=== PATIENT | female | born 1955 | race Caucasian/White ===

== ENCOUNTER 2019-01-12 23:47 | Emergency (ER) | payer MEDICARE, MEDICAID ==
[~2019-01-12] VITALS: Ht 157.5 cm; Wt 72.7 kg
[~2019-01-12 23:47] MED LIST: ALLO300T10 PO; ALPR0.5T9 PO; ASPI325T56 PO; ATOR10TA70 PO; BIOT1CAP3 PO; CETI-108 PO; CYCL10TA27 PO; DICY10CA88 PO; DOCU-273 PO; FENO134C PO; METF500T PO; METO25TA6 PO; MORP60TA66 PO; MULT-1085 PO; NITR0.4T SL; OMEP-50 PO; OXYC30TA88 PO; PROM25TA14 PO
[2019-01-12 23:59] VITALS: BP_DIAS 86
--- NOTE | 2019-01-12 23:59 | NUR ---
Pt is passive aggressive
[2019-01-13] MEDS ORDERED: PANT20TA2 PO (00:24)
[2019-01-13] MEDS ORDERED: SIMV20TA PO (00:25)
[2019-01-13] MEDS ORDERED: DULA0.75 SQ (00:26)
--- NOTE | 2019-01-13 00:32 | NUR ---
registration here to take he and passport and put into safe.
--- NOTE | 2019-01-13 00:37 | NUR ---
PTS STUFF LOCKED UP IN AMBULANCE AND DOCUMENTED
[2019-01-13 00:47] LABS: BASOPHILS # (AUTO) 0.1 X10'3 (0-0.2); BASOPHILS % (AUTO) 0.9 % (0-1); EOSINOPHILS # (AUTO) 0.4 X10'3 (0-0.9); EOSINOPHILS % (AUTO) 3.8 % (0-6); HEMATOCRIT 38.4 % (35.0-45.0); HEMOGLOBIN 12.5 g/dl (12.0-16.0); LYMPHOCYTES # (AUTO) 2.7 X10'3 (1.1-4.8); LYMPHOCYTES % (AUTO) 24.1 % (21-51); MEAN CORPUSCULAR HEMOGLOBIN 29.6 PG (27.0-31.0); MEAN CORPUSCULAR HGB CONC 32.4 g/dL (33.0-36.5); MEAN CORPUSCULAR VOLUME 91.1 FL (78-98); MONOCYTES # (AUTO) 0.6 X10'3 (0-0.9); NEUTROPHILS # (AUTO) 7.3 X10'3 (1.8-7.7); NEUTROPHILS % (AUTO) 66.2 % (42-75); PLATELET COUNT 292 X10'3 (140-440); RED BLOOD COUNT 4.22 X10'6 (4.20-5.60); RED CELL DISTRIBUTION WIDTH 14.9 % (11.5-14.5)
[2019-01-13 00:57] LABS: CLARITY,URINE CLEAR (Clear); COLOR,URINE YELLOW (Yellow); GLUCOSE, URINE >=1000 mg/dl (Neg); KETONES,URINE TRACE mg/dl (Neg); LEUKOCYTE ESTERASE ,URINE NEGATIVE (Neg); NITRITES, URINE NEGATIVE (Neg); OCCULT BLOOD,URINE SMALL (Neg); PH,URINE 5.5 (4.8-8.0); PROTEIN,URINE 100 mg/dl (Neg); UROBILINOGEN,URINE 0.2 E.U/dL (0.2-1.0)
[2019-01-13 00:58] LABS: URINE HCG NEGATIVE (NEG)
[2019-01-13 01:05] LABS: ALANINE AMINOTRANSFERASE 30 U/L (12-78); ALKALINE PHOSPHATASE 89 IU/L (46-116); ANION GAP 15 (8-16); ASPARTATE AMINO TRANSFERASE 17 U/L (10-37); BILIRUBIN,TOTAL 0.2 MG/DL (0.1-1.0); BLOOD UREA NITROGEN 35 MG/DL (7-18); BUN/CREATININE RATIO 22.3 (6.6-38.0); CALCIUM 9.2 MG/DL (8.5-10.1); CHLORIDE 100 MMOL/L (99-107); CREATININE 1.57 MG/DL (0.40-0.90); GLUCOSE 372 MG/DL (70-104); POTASSIUM 3.9 MMOL/L (3.5-5.1); SODIUM 136 MMOL/L (135-145); TOTAL CARBON DIOXIDE 21.4 MMOL/L (24-32); TOTAL PROTEIN 7.9 G/DL (6.4-8.2); eGFR 33 ML/MIN
--- NOTE | 2019-01-13 01:08 | NUR ---
She is difficult. She wants her blood sugar rechecked, she wants the doctor. Told her the doctor will be over here when he gets over here. And she got pissed at that.
[2019-01-13 01:09] LABS: URINE AMPHETAMINE SCREEN NEGATIVE (Neg); URINE BARBITUATE SCREEN NEGATIVE (Neg); URINE BENZODIAZEPINES SCREEN NEGATIVE (Neg); URINE CANNABINOID SCREEN POSITIVE (Neg); URINE COCAINE SCREEN NEGATIVE (Neg); URINE METHADONE SCREEN NEGATIVE (Neg); URINE OPIATE SCREEN POSITIVE (Neg); URINE PHENCYCLIDINE SCREEN NEGATIVE (Neg)
[2019-01-13] MEDS ORDERED: LORazepam 1 MG tablet PO ONE (01:10)
[2019-01-13 01:11] LABS: UA COLLECTION TYPE NON-SPECIFIED
[2019-01-13 01:12] LABS: SQUAMOUS EPITHELIAL CELL,UR MANY /LPF (FEW)
[2019-01-13 01:13] LABS: ETHANOL < 0.010 GM/DL (0.0-0.010)
[2019-01-13 01:13] LABS: BACTERIA,URINE 1+ /HPF (Neg); RBC,URINE 0-2 /HPF (0-2); WBC CLUMPS,URINE FEW /HPF (NEGATIVE); WBC,URINE 0-4 /HPF (0-4)
[2019-01-13] MEDS ORDERED: nitroGLYCERIN 0.4mg SUBLingual tab SL PRN (01:25)
--- NOTE | 2019-01-13 01:32 | NUR ---
Pharmacy called about the patient's Trulicity. Pt states she takes it on Fridays, and that she took it last Wednesday.
--- NOTE | 2019-01-13 01:42 | NUR ---
She is being mean to the staff. She said no one will talk to her. So when the tech went to go and talk to her she said "I'll wait for a professional." He is still there talking to her, perhaps she will calm down.
--- NOTE | 2019-01-13 02:33 | NUR ---
just finished talking to tech, up to BR now. The visit has calmed her.
--- NOTE | 2019-01-13 03:02 | NUR ---
She layed down about 10 minutes ago. Resting.
--- NOTE | 2019-01-13 04:46 | NUR ---
Huge Charley Horse in her right calf. Worked with her to get her leg straightened, relieve the cramp and then I massaged the area. It was a bad one.
--- NOTE | 2019-01-13 05:44 | NUR ---
Vital signs deferred as pt is asleep and it took her so long to finally fall asleep, that I am allowing her to continue to do so.
--- NOTE | 2019-01-13 06:38 | NUR ---
Patient is very upset this morning, she is telling me "I need to get out of here! How long does this take? I have an appointment at 9 am and I cant miss it!" I explained to her that this process can take time and that she needs to focus on being calm and patient with the process because that will help her in the long run. I told her that appointments can always be rescheduled but, right now she needs to focus on her mental well being. She is also concerned about her at home insulin medication called chika, this is something we do not carry at this facility and the MD is aware, i also spoke with him again about this am and let him know her BS was 315, he said as long as we are restarting the metformin , giving her a cc diet and lots of fluids that she will be fine for now. NO new orders received. Med Rec is done and all other home meds will be given this am.
[2019-01-13] MEDS ORDERED: metFORMIN 500mg tablet PO SCH (07:30)
[2019-01-13] MEDS ORDERED: metoprolol tartrate 25mg tablet PO SCH (08:00)
[2019-01-13] MEDS ORDERED: docusate sod 100mg capsule PO SCH (08:00)
[2019-01-13] MEDS ORDERED: allopurinol 300 MG tablet PO SCH (08:00)
[2019-01-13] MEDS ORDERED: multivitamins, therapeutics tablet PO SCH (08:00)
[2019-01-13] MEDS ORDERED: pantoprazole 40mg Tablet.DR PO SCH (08:00)
[2019-01-13] MEDS ORDERED: aspirin 325mg tablet PO SCH (08:00)
[2019-01-13 08:22] VITALS: BP_SYST 129
[2019-01-13] MEDS ORDERED: atorvastatin 10mg tablet PO SCH (21:00)
[2019-01-14] MEDS ORDERED: DULAGLUTIDE 0.75 MG SQ SCH (08:00)
== END 2019-01-13 11:06 | disposition home or self-care (01) ==
LOC: ER 23:48
DX: F41.9 Anxiety disorder, unspecified (principal); I25.10 Atherosclerotic heart disease of native coronary artery without angina pectoris; I10 Essential (primary) hypertension; I25.2 Old myocardial infarction; E11.9 Type 2 diabetes mellitus without complications; F12.90 Cannabis use, unspecified, uncomplicated; Z95.1 Presence of aortocoronary bypass graft; Z79.82 Long term (current) use of aspirin; Z88.2 Allergy status to sulfonamides
CPT/HCPCS: 36415; 80053; 80305; 80320; 81001; 81025; 82948; 84443; 85025; 99285

== ENCOUNTER 2021-08-13 05:49 | Day surgery (SDC) | payer MEDICARE, MEDICAID ==
[2021-08-12 12:26] LABS: BASOPHILS # (AUTO) 0.1 X10'3 (0-0.2); BASOPHILS % (AUTO) 1.5 % (0-1); EOSINOPHILS # (AUTO) 0.4 X10'3 (0-0.9); HEMATOCRIT 37.7 % (35.0-45.0); HEMOGLOBIN 12.5 g/dl (12.0-16.0); LYMPHOCYTES # (AUTO) 2.7 X10'3 (1.1-4.8); LYMPHOCYTES % (AUTO) 28.3 % (21-51); MEAN CORPUSCULAR HEMOGLOBIN 29.6 PG (27.0-31.0); MEAN CORPUSCULAR HGB CONC 33.2 g/dL (33.0-36.5); MEAN CORPUSCULAR VOLUME 89.1 FL (78-98); MEAN PLATELET VOLUME 8.4 FL (7.4-10.4); MONOCYTES # (AUTO) 0.5 X10'3 (0-0.9); MONOCYTES % (AUTO) 4.9 % (2-12); NEUTROPHILS # (AUTO) 5.8 X10'3 (1.8-7.7); NEUTROPHILS % (AUTO) 61.3 % (42-75); PLATELET COUNT 432 X10'3 (140-440); RED BLOOD COUNT 4.24 X10'6 (4.20-5.60); WHITE BLOOD COUNT 9.5 X10'3 (4.5-11.0)
[2021-08-12 12:38] LABS: PARTIAL THROMBOPLASTIN TIME 25 SECONDS (22-32)
[2021-08-12 12:40] LABS: ALANINE AMINOTRANSFERASE 28 U/L (12-78); ALBUMIN 4.2 G/DL (3.4-5.0); ALKALINE PHOSPHATASE 59 IU/L (46-116); ANION GAP 17 (8-16); ASPARTATE AMINO TRANSFERASE 11 U/L (10-37); BILIRUBIN,TOTAL 0.1 MG/DL (0.1-1.0); BLOOD UREA NITROGEN 56 MG/DL (7-18); BUN/CREATININE RATIO 22.3 (6.6-38.0); CALCIUM 9.1 MG/DL (8.5-10.1); CHLORIDE 106 MMOL/L (99-107); CREATININE 2.51 MG/DL (0.40-0.90); GLUCOSE 137 MG/DL (70-104); POTASSIUM 3.8 MMOL/L (3.5-5.1); SODIUM 143 MMOL/L (135-145); TOTAL CARBON DIOXIDE 20.4 MMOL/L (24-32); TOTAL PROTEIN 8.5 G/DL (6.4-8.2); eGFR 19 ML/MIN
[~2021-08-13] VITALS: Ht 167.6 cm; Wt 67.8 kg
[2021-08-13] VITALS (15 sets, daily range): BP systolic 124–159; BP diastolic 63–95
[~2021-08-13 05:49] MED LIST changes: -ALLO300T10 PO; -ALPR0.5T9 PO; +AMA1T PO; +ASPI-1265 PO; -ASPI325T56 PO; -ATOR10TA70 PO; +ATOR20TA66 PO; -BIOT1CAP3 PO; +CEFD300C3 PO; -CETI-108 PO; -CYCL10TA27 PO; +DAPA5TAB PO; -DICY10CA88 PO; -DOCU-273 PO; -FENO134C PO; +FENO145T38 PO; +HYDR-3965 PO; +ICOS1CAP2 PO; +LACT1CAP55 PO; +METF-1203 PO; -METF500T PO; -METO25TA6 PO; -MORP60TA66 PO; -MULT-1085 PO; -NITR0.4T SL; -OMEP-50 PO; -OXYC30TA88 PO; -PROM25TA14 PO; +TIZA-205 PO
[2021-08-13] MEDS ORDERED: diphenhydrAMINE 25mg capsule PO PRN (06:10)
[2021-08-13] MEDS ORDERED: dextrose ORAL solution 15 GM/59 ML bottle PO PRN ×2 (06:10)
[2021-08-13] MEDS ORDERED: glucagon, human recombinant 1mg kit SUBCUT PRN (06:10)
[2021-08-13] MEDS ORDERED: normal saline 1,000 ML IV SCH (06:10)
[2021-08-13] MEDS ORDERED: dextrose 50%-water 50ml dispensing syringe IV PRN ×2 (06:10)
[2021-08-13] MEDS ORDERED: LORazepam 0.5 MG tablet PO PRN (06:10)
[2021-08-13] MEDS ORDERED: insulin Lispro (HumaLOG) vial - multi-dose SQ SCH (06:10)
[2021-08-13] MEDS ORDERED: nitroGLYCERIN 0.4mg SUBLingual tab SL PRN ×2 (06:10→09:55)
[2021-08-13] MEDS ORDERED: HYDR-3964 (06:20)
[2021-08-13] MEDS ORDERED: CEFD300C21 PO (06:20)
[2021-08-13] MEDS ORDERED: METF-900 PO (06:20)
[2021-08-13] MEDS ORDERED: FENO145T26 PO (06:20)
[2021-08-13] MEDS ORDERED: LACT1CAP73 PO (06:23)
[2021-08-13] MEDS ORDERED: ATOR20TA PO (06:23)
[2021-08-13] MEDS ORDERED: ASPI-1265 PO (06:23)
[2021-08-13] MEDS ORDERED: AMA1T PO (06:23)
[2021-08-13] MEDS ORDERED: fentaNYL/PF 50MCG/1 ML 2ML syringe ONE ×2 (07:21→09:16)
[2021-08-13] MEDS ORDERED: midazolam 1 mg/ML 2ml injection ONE ×3 (07:21→09:26)
[2021-08-13] MEDS ORDERED: nitroGLYCERIN-Tridil 50MG/D5W 250 ML IV ONE (07:21)
[2021-08-13] MEDS ORDERED: iohexol 350 MG/ML 50ML vial IV ONE (07:22)
[2021-08-13] MEDS ORDERED: LIDOcaine 1% (10mg/ml)w/preservative injection 20ml MDV ONE (07:22)
[2021-08-13] MEDS ORDERED: iohexol 350MG/ML 100ml bottle IV ONE (07:22)
[2021-08-13 07:40] LABS: HEMOGLOBIN A1C 8.2 % (4.5-6.2)
[2021-08-13] MEDS ORDERED: HYDROcodone/acetaminophen 5mg/325mg tablet PO PRN (09:55)
[2021-08-13] MEDS ORDERED: normal saline 1000ml 1,000 ML IV SCH (09:55)
[2021-08-13] MEDS ORDERED: OXAZEpam 15mg capsule PO PRN (09:55)
[2021-08-13] MEDS ORDERED: proCHLORperazine 10 MG/2 ml inj IV PRN (09:55)
[2021-08-13] MEDS ORDERED: HYDROcodone/acetaminophen 10/325mg tab PO PRN (09:55)
[2021-08-13] MEDS ORDERED: ondansetron/PF 4mg/2ml inj IV PRN (09:55)
[2021-08-13] MEDS ORDERED: acetaminophen 325mg tablet PO PRN (09:55)
[2021-08-13] MEDS ORDERED: insulin glargine (Lantus) pen - multi-dose SQ SCH (21:00)
== END 2021-08-13 16:00 | disposition home or self-care (01) ==
LOC: SSTAY O 05:49
PROVIDERS: ATTEND Internal Medicine Cardiovascular Disease
DX: R94.39 Abnormal result of other cardiovascular function study (principal); I25.810 Atherosclerosis of coronary artery bypass graft(s) without angina pectoris; I25.82 Chronic total occlusion of coronary artery; I10 Essential (primary) hypertension; E11.9 Type 2 diabetes mellitus without complications; E78.5 Hyperlipidemia, unspecified; F32.9 Major depressive disorder, single episode, unspecified; I25.2 Old myocardial infarction; Z88.2 Allergy status to sulfonamides; Z87.891 Personal history of nicotine dependence; Z79.01 Long term (current) use of anticoagulants; Z79.899 Other long term (current) drug therapy; Z79.82 Long term (current) use of aspirin; Z79.84 Long term (current) use of oral hypoglycemic drugs; Z82.49 Family history of ischemic heart disease and other diseases of the circulatory system; Z83.3 Family history of diabetes mellitus; Z80.6 Family history of leukemia
CPT/HCPCS: 36415; 71046; 80053; 82948; 83036; 83880; 84484; 85025; 85610; 85730; 93005; 93459; 99152; C1760; C1769; J1644; J1815; J2001; J2250; J3010; J7030; Q0163; Q9967; 99153; A4620; A6258; J3490